=== PATIENT | male | born 1980 | race Caucasian/White ===

== ENCOUNTER → 2017-03-11 | Outpatient (CLI) | payer OTHER ==
--- NOTE | 2017-03-11 20:16 | REP ---
Clinical: Pain with recent trauma. Technique: AP, lateral, bilateral oblique and sunrise views of the right knee. Findings: Lateral view best demonstrates suprapatellar effusion. Mild parapatellar soft tissue swelling is appreciated. No acute fracture or dislocation. Impression: Swelling and effusion. No acute fracture or dislocation identified. Signed by Dami Malcolm MD 03/11/2017 08:08 P
== END ==
LOC: M WUC 09:59
PROVIDERS: ATTEND Physician Assistant
DX: M25.461 Effusion, right knee (principal)